=== PATIENT | male | born 1960 | race Asian ===

== ENCOUNTER 2018-06-09 15:39 | Inpatient (IN) | payer OTHER ==
--- NOTE | 2018-06-09 15:46 | PDOC ---
Rapid Medical Evaluation Time Seen by Provider: 06/09/18 15:40 Medical Evaluation: Allergies Allergy/AdvReac Type Severity Reaction Status Date / Time No Known Allergies Allergy Verified 06/09/18 06:24 06/09/18 15:46 Pt states that he syncopized today at home. Pt states he had a CT scan earlier in the day. After he had the scan he went home and felt light headed. states he then passed out and landed on his butt. He did not hit his head. states he then went to stand up after coming to and felt light headed. He has no complaints at this time Exam: NAD, no respiratory distress, AAOX3 Orders: Labs, urine, EKG, X-ray Pt to proceed to the ED for further evaluation Discharge Disposition - Diagnosis Syncopal episodes - Referrals Referrals: Franco Flores MD [Primary Care Provider] - - Patient Instructions - Post Discharge Activity
--- NOTE | 2018-06-09 16:22 | PDOC ---
Attending Attestation - Resident Resident Name: Pavan Nichols - ED Attending Attestation I have performed the following: I have examined & evaluated the patient, The case was reviewed & discussed with the resident, I agree w/resident's findings & plan, Exceptions are as noted - Critical Care Time Total Critical Care Time: 35 Critical Care Statement: The care of this patient involved high complexity decision making to prevent further life threatening deterioration of the patient 's condition and/or to evaluate & treat vital organ system(s) failure or risk of failure. - Medical Decision Making 06/09/18 16:21 I, Dr. Ann Del Toro, DO, attest that this document has been prepared under my direction and personally reviewed by me in its entirety. I further attest, that it accurately reflects all work, treatment, procedures and medical decision -making performed by me. 06/09/18 16:44 a/p: 57yo male with rectal bleeding that started this AM around midnight. 4 episodes this AM. had labs and ct in the ED that showed diverticular disease. went home, 2 syncopal episodes upon returning home will repeat labs, ekg, cxr will place in obs for GI bleed and syncope will consult Dr. Reinoso PMD is Dr. Flores nontoxic in appearance no head injury neuro intact 06/09/18 17:03 hgb dropped from 11.8 to 8.9 will admit for gi bleed and syncope family requesting consult to DR. Reinoso call placed to DR. Reinoso 06/09/18 17:11 resident discussed the case with RICHARD who is covering for Dr. Flores 06/09/18 17:21 resident is discussing the case with DR. Reinoso <Ann Del Toro - Last Filed: 06/09/18 17:21> - HPI HPI: 06/09/18 17:22 Patient is a 57 year old male with a significant past medical history of HTN, who presents to the ED with complaints of syncopizing that occurred earlier this afternoon. Patient reports coming into the ED this morning at 6 am with complaints of GI bleeding. He reports being discharged this afternoon after having blood work done. As per patient's , patient experienced x2 episodes of syncope shortly after returning home. Patient reports eating a small meal followed by an hour of bed red with slight relief. Patient's reports calling Dr. Flores who then advise patient come back into the ED for further evaluation. Denies chest pain, Sob. Denies nausea, vomiting. Denies fevers, chills. Denies contact with sick individuals, out of state travelling. Denies loss of consciousness, head trauma. Denies any other symptoms. Allergies: None Social history: No smoking. No alcohol. No illicit drugs. Surgical history: None PMD: Dr. Flores. GI: Dr. Reinoso - Physicial Exam PE: 06/09/18 17:22 GENERAL: Awake, alert, and fully oriented, in no acute distress HEAD: No signs of trauma EYES: PERRLA, EOMI, sclera anicteric, conjunctiva clear ENT: Auricles normal inspection, hearing grossly normal, nares patent, oropharynx clear without exudates. Moist mucosa NECK: Normal ROM, supple, no lymphadenopathy, JVD, or masses LUNGS: Breath sounds equal, clear to auscultation bilaterally. No wheezes, and no crackles HEART: Regular rate and rhythm, normal S1 and S2, no murmurs, rubs or gallops ABDOMEN: Soft, nontender, No guarding, no rebound. No masses EXTREMITIES: Normal range of motion, no edema. No clubbing or cyanosis. No cords, erythema, or tenderness NEUROLOGICAL: Cranial nerves II through XII grossly intact. Normal speech, normal gait SKIN: Warm, Dry, normal turgor, no rashes or lesions noted. <Suman Cardenas - Last Filed: 06/09/18 17:22> Heart Score/ECG Review - ECG Intrepretation Comment:: 06/09/18 16:45 sinus at 91, nl axis, nl interval, no acute st/t wave findings <Ann Del Toro - Last Filed: 06/09/18 17:21>
[2018-06-09 16:37] LABS: BASO % 0.1 % (0-2.0); EOS % 0.2 % (0-4.5); HEMATOCRIT 26.2 % (35.4-49); HEMOGLOBIN 8.9 GM/dL (11.7-16.9); LYMPH % 22.6 % (8-40); MCH 30.4 pg (25.7-33.7); MEAN CELL VOLUME 89.5 fl (80-96); MEAN PLT VOLUME 7.5 fl (7.5-11.1); MONO % 5.5 % (3.8-10.2); NEUT % 71.6 % (42.8-82.8); PLATELET COUNT 178 K/MM3 (134-434); RBC 2.93 M/mm3 (4.00-5.60); RDW 12.5 % (11.9-15.9); WHITE BLOOD COUNT 9.6 K/mm3 (4.0-10.0)
[2018-06-09 16:52] LABS: URINE APPEARANCE CLEAR; URINE BILIRUBIN NEGATIVE (<2.0 mg/dL); URINE COLOR STRAW; URINE GLUCOSE (UA) NEGATIVE (NEGATIVE); URINE KETONE NEGATIVE (NEGATIVE); URINE LEUK ESTERASE NEGATIVE (NEGATIVE); URINE NITRITE NEGATIVE (NEGATIVE); URINE PROTEIN NEGATIVE (NEGATIVE); URINE UROBILINOGEN NEGATIVE mg/dL (0.2-1.0)
[2018-06-09 17:01] LABS: INR 1.15 (0.83-1.09)
--- NOTE | 2018-06-09 17:04 | PDOC ---
History of Present Illness - General Chief Complaint: Syncope/Near Syncope Stated Complaint: Syncope/Near Syncope Time Seen by Provider: 06/09/18 15:40 History Source: Patient - History of Present Illness Initial Comments: The patient is a 57M with a history of GI bleed in the past 2/2 diverticula who presents after discharge this morning with 1 additional episode (4 prior to AM presentation) and now a syncopal episode. The patient states that he was feeling well at home, went to stand, and subsequently experienced a syncopal episode. He states he remembers falling but does not recall several seconds shortly thereafter. The witnessed the event, and reports that he did not hit his head and returned to his baseline consciousness within a few seconds. 06/09/18 17:15 Past History - Past Medical History Allergies/Adverse Reactions: Allergies Allergy/AdvReac Type Severity Reaction Status Date / Time No Known Allergies Allergy Verified 06/09/18 15:41 Home Medications: Ambulatory Orders NK [No Known Home Medication] 06/09/18 Anemia: No Cancer: No Cardiac Disorders: No CVA: No COPD: No DVT: No Diabetes: No Disorders: No Hypercholesterolemia: No Liver Disease: No Seizures: No Thyroid Disease: No - Surgical History Abdominal Surgery: No Appendectomy: No Cholecystectomy: No Gastric Stapling: No - Immunization History Immunization Up to Date: No - Suicide/Smoking/Psychosocial Hx Smoking History: Never smoked Have you smoked in the past 12 months: No Information on smoking cessation initiated: No Hx Alcohol Use: No Drug/Substance Use Hx: No Substance Use Type: None Review of Systems - Review of Systems Able to Perform ROS?: Yes Comments:: GENERAL/CONSTITUTIONAL: No fever or chills. No weakness HEAD, EYES, EARS, NOSE AND THROAT: No change in vision. No ear pain or discharge. No sore throat CARDIOVASCULAR: No chest pain or shortness of breath RESPIRATORY: No cough, wheezing, or hemoptysis GASTROINTESTINAL: No nausea, vomiting, diarrhea or constipation GENITOURINARY: No dysuria, frequency, or change in urination MUSCULOSKELETAL: No joint or muscle swelling or pain. No neck or back pain SKIN: No rash NEUROLOGIC: No headache; no current dizziness/lightheadedness; no change in strength/sensation ENDOCRINE: No increased thirst. No abnormal weight change HEMATOLOGIC/LYMPHATIC: No anemia, easy bleeding, or history of blood clots ALLERGIC/IMMUNOLOGIC: No hives or skin allergy 06/09/18 17:44 *Physical Exam - Vital Signs Last Vital Signs Temp Pulse Resp BP Pulse Ox 98.1 F 93 H 16 120/70 100 06/09/18 15:41 06/09/18 15:41 06/09/18 15:41 06/09/18 15:41 06/09/18 15:41 - Physical Exam Comments: GENERAL: Awake, alert, and fully oriented, in no acute distress HEAD: No signs of trauma, normocephalic, atraumatic EYES: PERRL, EOMI, sclera anicteric, conjunctiva clear ENT: Hearing grossly normal, nares patent, oropharynx clear without exudates. Moist mucosa NECK: Normal ROM, supple, no lymphadenopathy LUNGS: No distress, speaks full sentences, clear to auscultation bilaterally HEART:Regular rate and rhythm, normal S1 and S2, no murmurs appreciated, peripheral pulses normal and equal bilaterally ABDOMEN: Soft, nontender, normoactive bowel sounds. No guarding, no rebound. No masses RECTAL: normal tone, no external hemorrhoids, gross blood on exam glove, FOBT obtained EXTREMITIES : Normal inspection, Normal range of motion, no edema. No clubbing or cyanosis. No abrasion or gluteal TTP s/p fall. NEUROLOGICAL: Cranial nerves II through XII grossly intact. Normal speech, no focal sensorimotor deficits SKIN: Warm, Dry, normal turgor 06/09/18 17:53 ED Treatment Course - LABORATORY CBC & Chemistry Diagram: 06/09/18 16:03 06/09/18 16:03 - ADDITIONAL ORDERS Additional order review: 06/09/18 16:03 RBC 2.93 L MCV 89.5 MCHC 34.0 RDW 12.5 MPV 7.5 Neutrophils % 71.6 D Lymphocytes % 22.6 D Monocytes % 5.5 Eosinophils % 0.2 D Basophils % 0.1 Medical Decision Making - Medical Decision Making The patient is a 57M with a history of distant GI bleed who presents with BRBPR. He was discharged this morning as asymptomatic and with a Hgb of 11. He returned s/p 1 additional episode of bloody diarrhea and a syncopal episode. ED Course CMP, CBC, FOBT, UA ECG Plan for admission for GI bleed and symptomatic acute blood loss anemia Hgb 8 from 11 this AM ECG without significant change Gross blood on exam glove UA without concern for UTI Dr. Reinoso consulted for GI. Plan for scope tomorrow AM, will give 4 tabs of bisacodyl and transfuse 1u pRBC in prep for tomorrow Paper consent obtained for blood transfusion Trop I negative Dispo: Admit to Hospitalist with GI consult 06/09/18 18:30 *DC/Admit/Observation/Transfer Diagnosis at time of Disposition: Symptomatic anemia Syncopal episodes Qualifiers: Syncope type: unspecified Qualified Code(s): R55 - Syncope and collapse GI bleed Qualifiers: GI bleed type/associated pathology: diverticulosis Qualified Code(s): K57.91 - Diverticulosis of intestine, part unspecified, without perforation or abscess with bleeding - Discharge Dispostion Condition at time of disposition: Guarded Decision to Admit order: Yes - Referrals Referrals: Franco Flores MD [Primary Care Provider] - - Patient Instructions - Post Discharge Activity
--- NOTE | 2018-06-09 17:10 | HP ---
Admitting History and Physical - Admission Chief Complaint: GI bleed History of Present Illness: This is a 57 year old male with pmhx of HTN who presented to the ED at 0530 this morning after 3 episodes of rectal bleeding, described as diarrhea but red , with additional episode while in the ED. The patient and his went to the ER and after being evaluated sent home with instruction to follow with Dr. Reinoso in PCP office Dr. Menjivar tomorrow morning. At that time Hgb was stable, CT scan showed diverticula throughout colon without infection. It was noted in previous ED note, pt took an aleve for shoulder pain before the bleeding started Following discharged, patient went home, after awhile went outside and noticed pt unsteady and he felt backward on his gluteus amaury. He not lose consciousness, fall was witnessed by . As pt helped himself up, he again pre syncopized and fell over his dog, not losing consciousness. Pt appeared pale per , however denies sob, HUGGINS, change in vision, chest pain , AMS. He ate some food and napped, feeling better when he woke up. Of note, noted pt clenching his fists when eating however resolved after a few seconds. Pt called PCP and directed pt to come to the ER. Currently, pt denies further BM, sob, HUGGINS, CP, nausea, vomiting, hemataemsis. Pt denies use of anti coagulants. Pt had colonoscopy in 2005 or 2009 and was negative for pathology History Source: Patient Limitations to Obtaining History: No Limitations - Past Medical History Cardiovascular: Yes: HTN - Smoking History Smoking history: Never smoked Have you smoked in the past 12 months: No - Alcohol/Substance Use Hx Alcohol Use: No - Social History Usual Living Arrangement: Yes: With Spouse ADL: Independent Home Medications - Allergies Allergies/Adverse Reactions: Allergies Allergy/AdvReac Type Severity Reaction Status Date / Time No Known Allergies Allergy Verified 06/09/18 15:41 - Home Medications Home Medications: Ambulatory Orders NK [No Known Home Medication] 06/09/18 Review of Systems - Review of Systems Constitutional: reports: Weakness Eyes: reports: No Symptoms HENT: reports: No Symptoms Neck: reports: No Symptoms Cardiovascular: reports: No Symptoms Respiratory: reports: No Symptoms Gastrointestinal: reports: Rectal Bleeding Integumentary: reports: No Symptoms Neurological: reports: Change in LOC, Syncope Endocrine: reports: No Symptoms Hematology/Lymphatic: reports: No Symptoms Psychiatric: reports: No Symptoms Physical Examination Vital Signs: Vital Signs Temperature 98.1 F 06/09/18 15:41 Pulse Rate 93 H 06/09/18 15:41 Respiratory Rate 16 06/09/18 15:41 Blood Pressure 120/70 06/09/18 15:41 O2 Sat by Pulse Oximetry (%) 100 06/09/18 15:41 Constitutional: Yes: No Distress Eyes: Yes: Conjunctiva Clear HENT: Yes: Atraumatic Neck: Yes: Supple Cardiovascular: Yes: Regular Rate and Rhythm, S1, S2 Respiratory: Yes: Regular, CTA Bilaterally Gastrointestinal: Yes: Normal Bowel Sounds, Soft Musculoskeletal: Yes: WNL Extremities: Yes: WNL Edema: No Integumentary: Yes: WNL Neurological: Yes: Alert, Oriented, Cran Nerves II-XII Intact Labs: CBC, BMP 06/09/18 16:03 Imaging - Results Cat Scan: Report Reviewed Problem List - Problems (1) HTN (hypertension) Code(s): I10 - ESSENTIAL (PRIMARY) HYPERTENSION (2) Syncopal episodes Code(s): R55 - SYNCOPE AND COLLAPSE (3) GI bleed Code(s): K92.2 - GASTROINTESTINAL HEMORRHAGE, UNSPECIFIED Qualifiers: GI bleed type/associated pathology: diverticulosis Qualified Code(s): K57.91 - Diverticulosis of intestine, part unspecified, without perforation or abscess with bleeding Assessment/Plan Assessment: 57 year old male with pmhx htn admitted with acute rectal bleeding and syncope Plan: 1. GI bleed, with blood loss - Keep NPO - Start bowel prep - X4 tabs bisacodyl now - Transfuse 1 unit prbc - d/w GI will scope upper and lower tomorrow 2. Syncope/Pre syncope - Likely due to acute blood loss anemia from above - If persists, consider Head CT 3. Acute blood loss anemia - Due to above - Will transfuse 1 units - Follow CBC 4. HTN - Hold HCTZ 5. DVT ppx - SCDs d/t bleed Visit type - Emergency Visit Emergency Visit: Yes Care time: The patient presented to the Emergency Department on the above date and was hospitalized for further evaluation of their emergent condition. - New Patient This patient is new to me today: Yes Date on this admission: 06/09/18 - Critical Care Critical Care patient: No Hospitalist Screening - Colonoscopy Questionnaire Colonoscopy Questionnaire: Colonoscopy Questionnaire - Patient: 50 - 75 years old and never had a screening colonoscopy: No History of colon or rectal polyps, or CA: No History of IBD, Crohn's disease or UC: No History of abdominal radiation therapy as a child: No - Relative: 1 with colon or rectal CA, or polyps at age 60 or younger: No Colon or rectal CA diagnosed at age 45 or younger: No Multiple relatives with colon or rectal CA: No - Outcome: Screening Result: Negative Screen
[2018-06-09 17:28] LABS: ANION GAP 9 (8-16); BLOOD UREA NITROGEN 16 mg/dL (7-18); CALCIUM 7.6 mg/dL (8.5-10.1); CHLORIDE 103 mmol/L (98-107); CO2 25 mmol/L (21-32); GLUCOSE,RANDOM 154 mg/dL (74-106); POTASSIUM 3.9 mmol/L (3.5-5.1); SGOT/AST 15 U/L (15-37); SGPT/ALT 19 U/L (12-78); SODIUM 137 mmol/L (136-145)
[2018-06-09] MEDS ORDERED: BISACODYL 5 MG TABLET.DR (FP) PO ONE (17:28)
[2018-06-09] MEDS ORDERED: BISACODYL 5 MG TABLET.DR (FP) ONE ×2 (17:30)
[2018-06-09 17:31] LABS: ALK PHOS 34 U/L (45-117); BILIRUBIN,TOTAL 0.4 mg/dL (0.2-1.0); TOT PROT 5.2 g/dl (6.4-8.2)
[2018-06-09] MEDS ORDERED: SODIUM CHLORIDE 1,000 ML IV SCH (18:15)
[2018-06-09] MEDS ORDERED: PEG 3350/NA SULF BICARB CL/KCL 4000 ML SOLN.RECON PO ONE (18:45)
[2018-06-10 06:40] LABS: BASO % 0.2 % (0-2.0); EOS % 0.9 % (0-4.5); HEMATOCRIT 21.9 % (35.4-49); HEMOGLOBIN 7.9 GM/dL (11.7-16.9); LYMPH % 32.6 % (8-40); MCH 31.5 pg (25.7-33.7); MCHC 36.1 g/dl (32.0-35.9); MEAN CELL VOLUME 87.2 fl (80-96); MEAN PLT VOLUME 7.3 fl (7.5-11.1); MONO % 8.2 % (3.8-10.2); NEUT % 58.1 % (42.8-82.8); PLATELET COUNT 120 K/MM3 (134-434); RBC 2.51 M/mm3 (4.00-5.60); RDW 12.7 % (11.9-15.9); WHITE BLOOD COUNT 6.5 K/mm3 (4.0-10.0)
[2018-06-10 06:42] LABS: INR 1.22 (0.83-1.09); PROTHROMBIN TIME (PATIENT) 13.8 SEC (9.7-13.0)
[2018-06-10 07:04] LABS: ALBUMIN 2.7 g/dl (3.4-5.0); ANION GAP 8 (8-16); BLOOD UREA NITROGEN 11 mg/dL (7-18); CALCIUM 7.1 mg/dL (8.5-10.1); CHLORIDE 106 mmol/L (98-107); CO2 29 mmol/L (21-32); GLUCOSE,RANDOM 115 mg/dL (74-106); POTASSIUM 3.3 mmol/L (3.5-5.1); SODIUM 143 mmol/L (136-145)
[2018-06-10 07:08] LABS: ALK PHOS 28 U/L (45-117); BILIRUBIN,TOTAL 0.6 mg/dL (0.2-1.0); CREATININE 0.9 mg/dL (0.7-1.3); SGOT/AST 17 U/L (15-37); SGPT/ALT 17 U/L (12-78); TOT PROT 4.6 g/dl (6.4-8.2)
--- NOTE | 2018-06-10 09:22 | PN ---
Progress Note, Physician History of Present Illness: This is a 57 year old male with pmhx of HTN who presented to the ED after 3 episodes of rectal bleeding, described as diarrhea but red, with additional episode while in the ED. The patient and his went to the ER and after being evaluated sent home with instruction to follow with Dr. Reinoso in PCP office Dr. Menjivar tomorrow morning. At that time Hgb was stable, CT scan showed diverticula throughout colon without infection. Patent became weak and passed out for a few seconds and returned to the ER - Current Medication List Current Medications: Active Medications Sodium Chloride (Normal Saline -) 1,000 mls @ 75 mls/hr IV ASDIR GRISEL Last Admin: 06/09/18 19:30 Dose: 75 mls/hr - Objective Vital Signs: Vital Signs Temperature 98.7 F 06/10/18 06:47 Pulse Rate 94 H 06/10/18 06:47 Respiratory Rate 17 06/10/18 06:47 Blood Pressure 102/56 06/10/18 06:47 O2 Sat by Pulse Oximetry (%) 100 06/10/18 06:47 Cardiovascular: Yes: Regular Rate and Rhythm Respiratory: Yes: Regular, CTA Bilaterally Gastrointestinal: Yes: Normal Bowel Sounds, Soft. No: Tenderness Neurological: Yes: Alert, Oriented. No: Facial Droop Labs: CBC, BMP 06/10/18 06:00 06/10/18 06:00 INR, PTT INR 1.22 (0.83-1.09) H 06/10/18 06:00 Problem List - Problems (1) GI bleed Assessment/Plan: -GI bleed, with blood loss - Keep NPO - Transfuse 2 unit prbc - GI will scope upper and lower Code(s): K92.2 - GASTROINTESTINAL HEMORRHAGE, UNSPECIFIED Qualifiers: GI bleed type/associated pathology: diverticulosis Qualified Code(s): K57.91 - Diverticulosis of intestine, part unspecified, without perforation or abscess with bleeding (2) Symptomatic anemia Assessment/Plan: - Acute blood loss anemia - Due to above - Will transfuse 2 units - Follow CBC Code(s): D64.9 - ANEMIA, UNSPECIFIED (3) HTN (hypertension) Assessment/Plan: - Hold HCTZ Code(s): I10 - ESSENTIAL (PRIMARY) HYPERTENSION (4) Syncopal episodes Assessment/Plan: -Syncope/Pre syncope - Likely due to acute blood loss anemia from above - If persists, consider Head CT Code(s): R55 - SYNCOPE AND COLLAPSE Qualifiers: Syncope type: unspecified Qualified Code(s): R55 - Syncope and collapse
[2018-06-10] MEDS ORDERED: D5-1/2NS+30 MEQ KCL - 30 MEQ/1,000 ML INFUS.BAG IV SCH (09:30)
[2018-06-10] MEDS ORDERED: KCL 10 MEQ IVPB 10 MEQ/100 ML INFUS.BAG IVPB ONE (10:27)
[2018-06-10] MEDS: KCL 10 MEQ IVPB 10 MEQ/100 ML INFUS.BAG IVPB SCH ×2 (10:34→12:42)
[2018-06-10] MEDS ORDERED: PANTOPRAZOLE SODIUM 80 MG in SODIUM CHLORIDE 100 ML IVPB SCH (14:30)
[2018-06-10] MEDS ORDERED: PANTOPRAZOLE SODIUM 160 MG in DEXTROSE 5%-WATER - 290 ML IVPB SCH (15:15)
--- NOTE | 2018-06-10 16:00 | PROC ---
Endoscopy Procedure Endoscopy procedure completed. Please see scanned procedure report. multiple, small duodenal bulb ulcers, mild antral gastritis and reflux esophagitis. Biopsies taken mild shearer-diverticulosis w/o bleeding. Protonix 40 mg po qam Regular diet Follow biopsy next Wednesday
--- NOTE | 2018-06-10 16:23 | CON.GI ---
Consult Consult Specialty:: GI Reason for Consultation:: hematochezia, anemia - History of Present Illness History of Present Illness: Chart reviewed. Events noted. A 57M with history of divericulosis and diverticular bleed in 2003 presents to ED 1 day ago with c/o hematochezia x 1 day and symptomatic, acute blood loss anemia. No prodromal events. No weight loss, dysphagia, reflux sumptoms, abdominal pain, nausea, vomiting, jaundice. No hematemesis, melena. Takes Alive for shoulder pain frequently, Zantak PRN, drinks socially. CMP Sodium 143 mmol/L (136-145) 06/10/18 06:00 Potassium 3.3 mmol/L (3.5-5.1) L 06/10/18 06:00 Chloride 106 mmol/L (98-107) 06/10/18 06:00 Carbon Dioxide 29 mmol/L (21-32) 06/10/18 06:00 Anion Gap 8 (8-16) 06/10/18 06:00 BUN 11 mg/dL (7-18) 06/10/18 06:00 Creatinine 0.9 mg/dL (0.7-1.3) 06/10/18 06:00 Creat Clearance w eGFR > 60 (>60) 06/10/18 06:00 Random Glucose 115 mg/dL (74-106) H D 06/10/18 06:00 Calcium 7.1 mg/dL (8.5-10.1) L 06/10/18 06:00 Total Bilirubin 0.6 mg/dL (0.2-1.0) 06/10/18 06:00 AST 17 U/L (15-37) 06/10/18 06:00 ALT 17 U/L (12-78) 06/10/18 06:00 Alkaline Phosphatase 28 U/L (45-117) L 06/10/18 06:00 Creatine Kinase 217 IU/L (39-308) 06/09/18 16:03 Creatine Kinase Index 0.4 % (0.0-5.0) 06/09/18 16:03 CK-MB (CK-2) < 1.00 ng/mL (0.5-3.6) 06/09/18 16:03 Troponin I 0.02 ng/ml (0.00-0.05) 06/09/18 16:03 Total Protein 4.6 g/dl (6.4-8.2) L 06/10/18 06:00 Albumin 2.7 g/dl (3.4-5.0) L 06/10/18 06:00 CBCD WBC 6.5 K/mm3 (4.0-10.0) 06/10/18 06:00 RBC 2.51 M/mm3 (4.00-5.60) L 06/10/18 06:00 Hgb 7.9 GM/dL (11.7-16.9) L 06/10/18 06:00 Hct 21.9 % (35.4-49) L D 06/10/18 06:00 MCV 87.2 fl (80-96) 06/10/18 06:00 MCHC 36.1 g/dl (32.0-35.9) H 06/10/18 06:00 RDW 12.7 % (11.9-15.9) 06/10/18 06:00 Plt Count 120 K/MM3 (134-434) L D 06/10/18 06:00 MPV 7.3 fl (7.5-11.1) L 06/10/18 06:00 CMP Sodium 143 mmol/L (136-145) 06/10/18 06:00 Potassium 3.3 mmol/L (3.5-5.1) L 06/10/18 06:00 Chloride 106 mmol/L (98-107) 06/10/18 06:00 Carbon Dioxide 29 mmol/L (21-32) 06/10/18 06:00 Anion Gap 8 (8-16) 06/10/18 06:00 BUN 11 mg/dL (7-18) 06/10/18 06:00 Creatinine 0.9 mg/dL (0.7-1.3) 06/10/18 06:00 Creat Clearance w eGFR > 60 (>60) 06/10/18 06:00 Calcium 7.1 mg/dL (8.5-10.1) L 06/10/18 06:00 Total Bilirubin 0.6 mg/dL (0.2-1.0) 06/10/18 06:00 AST 17 U/L (15-37) 06/10/18 06:00 ALT 17 U/L (12-78) 06/10/18 06:00 Alkaline Phosphatase 28 U/L (45-117) L 06/10/18 06:00 Total Protein 4.6 g/dl (6.4-8.2) L 06/10/18 06:00 Albumin 2.7 g/dl (3.4-5.0) L 06/10/18 06:00 INR, PTT INR 1.22 (0.83-1.09) H 06/10/18 06:00 - History Source History Provided By: Patient, Family Member, Medical Record - Past Medical History Cardio/Vascular: Yes: HTN - Alcohol/Substance Use Hx Alcohol Use: No - Smoking History Smoking history: Never smoked Have you smoked in the past 12 months: No - Social History ADL: Independent Home Medications - Allergies Allergies/Adverse Reactions: Allergies Allergy/AdvReac Type Severity Reaction Status Date / Time No Known Allergies Allergy Verified 06/09/18 15:41 - Home Medications Home Medications: Ambulatory Orders NK [No Known Home Medication] 06/09/18 Family Disease History - Family Disease History Family History: Unremarkable (non-contrib) Review of Systems Findings/Remarks: as per HPI, ED, H&P Physical Exam-GI Vital Signs: Vital Signs Temperature 98.3 F 06/10/18 15:49 Pulse Rate 80 06/10/18 16:04 Respiratory Rate 21 06/10/18 16:04 Blood Pressure 100/53 06/10/18 16:04 O2 Sat by Pulse Oximetry (%) 100 06/10/18 16:04 Constitutional: Yes: Well Nourished, No Distress, Calm Eyes: Yes: Conjunctiva Clear HENT: Yes: Atraumatic Neck: Yes: Supple Cardiovascular: Yes: Regular Rate and Rhythm Respiratory: Yes: Regular Gastrointestinal Inspection: No: Ascites, Distention ...Auscultate: Yes: Normoactive Bowel Sounds ...Palpate: Yes: Soft. No: Firm/Rigid, Guarding, Mass, Tenderness, Tenderness, Epigastium, Tenderness, Rebound ...Rectal Exam: Yes: Deferred (egd/colonoscopy) Neurological: Yes: Alert, Oriented Labs: CBC, BMP 06/10/18 06:00 06/10/18 06:00 INR, PTT INR 1.22 (0.83-1.09) H 06/10/18 06:00 Laboratory Last Values WBC 6.5 K/mm3 (4.0-10.0) 06/10/18 06:00 RBC 2.51 M/mm3 (4.00-5.60) L 06/10/18 06:00 Hgb 7.9 GM/dL (11.7-16.9) L 06/10/18 06:00 Hct 21.9 % (35.4-49) L D 06/10/18 06:00 MCV 87.2 fl (80-96) 06/10/18 06:00 MCH 31.5 pg (25.7-33.7) 06/10/18 06:00 MCHC 36.1 g/dl (32.0-35.9) H 06/10/18 06:00 RDW 12.7 % (11.9-15.9) 06/10/18 06:00 Plt Count 120 K/MM3 (134-434) L D 06/10/18 06:00 MPV 7.3 fl (7.5-11.1) L 06/10/18 06:00 Absolute Neuts (auto) 3.8 K/mm3 (1.5-8.0) 06/10/18 06:00 Neutrophils % 58.1 % (42.8-82.8) 06/10/18 06:00 Lymphocytes % 32.6 % (8-40) D 06/10/18 06:00 Monocytes % 8.2 % (3.8-10.2) 06/10/18 06:00 Eosinophils % 0.9 % (0-4.5) D 06/10/18 06:00 Basophils % 0.2 % (0-2.0) 06/10/18 06:00 Nucleated RBC % 0 % (0-0) 06/10/18 06:00 PT with INR 13.80 SEC (9.7-13.0) H 06/10/18 06:00 INR 1.22 (0.83-1.09) H 06/10/18 06:00 Sodium 143 mmol/L (136-145) 06/10/18 06:00 Potassium 3.3 mmol/L (3.5-5.1) L 06/10/18 06:00 Chloride 106 mmol/L (98-107) 06/10/18 06:00 Carbon Dioxide 29 mmol/L (21-32) 06/10/18 06:00 Anion Gap 8 (8-16) 06/10/18 06:00 BUN 11 mg/dL (7-18) 06/10/18 06:00 Creatinine 0.9 mg/dL (0.7-1.3) 06/10/18 06:00 Creat Clearance w eGFR > 60 (>60) 06/10/18 06:00 Random Glucose 115 mg/dL (74-106) H D 06/10/18 06:00 Calcium 7.1 mg/dL (8.5-10.1) L 06/10/18 06:00 Total Bilirubin 0.6 mg/dL (0.2-1.0) 06/10/18 06:00 AST 17 U/L (15-37) 06/10/18 06:00 ALT 17 U/L (12-78) 06/10/18 06:00 Alkaline Phosphatase 28 U/L (45-117) L 06/10/18 06:00 Creatine Kinase 217 IU/L (39-308) 06/09/18 16:03 Creatine Kinase Index 0.4 % (0.0-5.0) 06/09/18 16:03 CK-MB (CK-2) < 1.00 ng/mL (0.5-3.6) 06/09/18 16:03 Troponin I 0.02 ng/ml (0.00-0.05) 06/09/18 16:03 Total Protein 4.6 g/dl (6.4-8.2) L 06/10/18 06:00 Albumin 2.7 g/dl (3.4-5.0) L 06/10/18 06:00 Urine Color Straw 06/09/18 16:03 Urine Appearance Clear 06/09/18 16:03 Urine pH 6.0 (5.0-8.0) 06/09/18 16:03 Ur Specific [place] 1.012 (1.001-1.035) 06/09/18 16:03 Urine Protein Negative (NEGATIVE) 06/09/18 16:03 Urine Glucose (UA) Negative (NEGATIVE) 06/09/18 16:03 Urine Ketones Negative (NEGATIVE) 06/09/18 16:03 Urine Blood Negative (NEGATIVE) 08/16/18 16:03 Urine Nitrite Negative (NEGATIVE) 06/09/18 16:03 Urine Bilirubin Negative (<2.0 mg/dL) 06/09/18 16:03 Urine Urobilinogen Negative mg/dL (0.2-1.0) 06/09/18 16:03 Ur Leukocyte Esterase Negative (NEGATIVE) 06/09/18 16:03 Stool Occult Blood Positive (NEGATIVE) 06/09/18 17:15 Blood Type AB POSITIVE 06/10/18 10:05 Antibody Screen Negative 06/10/18 10:05 Crossmatch See Detail 06/10/18 10:05 Problem List - Problems (1) Acute GI bleeding Code(s): K92.2 - GASTROINTESTINAL HEMORRHAGE, UNSPECIFIED (2) Duodenal ulcer Code(s): K26.9 - DUODENAL ULCER, UNSP ACUTE OR CHRONIC, W/O HEMOR OR PERF (3) Gastritis Code(s): K29.70 - GASTRITIS, UNSPECIFIED, WITHOUT BLEEDING (4) Gastritis and duodenitis Code(s): K29.90 - GASTRODUODENITIS, UNSPECIFIED, WITHOUT BLEEDING (5) Esophagitis Code(s): K20.9 - ESOPHAGITIS, UNSPECIFIED (6) Diverticulosis Code(s): K57.90 - DVRTCLOS OF INTEST, PART UNSP, W/O PERF OR ABSCESS W/O BLEED (7) Symptomatic anemia Code(s): D64.9 - ANEMIA, UNSPECIFIED Assessment/Plan A 57M with symptomatic hematochezia, normal BUN no uper GI symptoms. Hx of chronci NSAID use, social ETOH. EGD revealed low risk, small, shallow duodenal ulcers and non-bleeding (at the time of the exam) mild shearer-diverticulosis. Protonix 40 mg po qam Resume regular diet D/C NSAIDs, ETOH Supplement Iron Avoid constipation Follow biopsies in office
[2018-06-10 17:09] VITALS: BMI 23.3
[2018-06-10] MEDS: PANTOPRAZOLE 40 MG TABLET (FP) PO SCH (18:27)
[2018-06-10 22:54] LABS: HEMOGLOBIN 8.3 GM/dL (11.7-16.9); MCH 30.6 pg (25.7-33.7); MCHC 34.6 g/dl (32.0-35.9); MEAN CELL VOLUME 88.4 fl (80-96); MEAN PLT VOLUME 7.2 fl (7.5-11.1); PLATELET COUNT 135 K/MM3 (134-434); RBC 2.71 M/mm3 (4.00-5.60); RDW 13.8 % (11.9-15.9); WHITE BLOOD COUNT 6.6 K/mm3 (4.0-10.0)
[2018-06-11 07:00] LABS: HEMATOCRIT 26.4 % (35.4-49); HEMOGLOBIN 9.4 GM/dL (11.7-16.9); MCH 31.1 pg (25.7-33.7); MCHC 35.7 g/dl (32.0-35.9); MEAN CELL VOLUME 87.1 fl (80-96); MEAN PLT VOLUME 7.1 fl (7.5-11.1); PLATELET COUNT 121 K/MM3 (134-434); RBC 3.03 M/mm3 (4.00-5.60); RDW 13.9 % (11.9-15.9); WHITE BLOOD COUNT 6.7 K/mm3 (4.0-10.0)
[2018-06-11 07:25] LABS: ANION GAP 6 (8-16); BLOOD UREA NITROGEN 13 mg/dL (7-18); CALCIUM 7.5 mg/dL (8.5-10.1); CHLORIDE 110 mmol/L (98-107); CO2 30 mmol/L (21-32); CREATININE 0.9 mg/dL (0.7-1.3); GLUCOSE,RANDOM 111 mg/dL (74-106); MAGNESIUM 2.3 mg/dL (1.8-2.4); PHOSPHOROUS 2.5 mg/dL (2.5-4.9); POTASSIUM 3.7 mmol/L (3.5-5.1); SODIUM 146 mmol/L (136-145)
[2018-06-11 09:01] VITALS: BP 122/81; PULSE 77; TEMP 98.6
[2018-06-11] MEDS: PANTOPRAZOLE 40 MG TABLET (FP) PO SCH (09:02)
[2018-06-11] MEDS ORDERED: IRON SUCROSE INJECTION 200 MG in SODIUM CHLORIDE 90 ML IVPB ONE (09:03)
--- NOTE | 2018-06-11 09:07 | DS ---
Physical Examination Vital Signs: Vital Signs Temperature 98.6 F 06/11/18 09:00 Pulse Rate 77 06/11/18 09:00 Respiratory Rate 20 06/11/18 09:00 Blood Pressure 122/81 06/11/18 09:00 O2 Sat by Pulse Oximetry (%) 98 06/10/18 21:00 Findings/Remarks: ENDOSCOPY REPORT REVIEWED TODAY HE FEELS GOOD NO ABD PAIN AND NO BLEEDING PER RECTUM Constitutional: Yes: No Distress Eyes: Yes: WNL HENT: Yes: WNL Neck: Yes: WNL Cardiovascular: Yes: WNL Respiratory: Yes: WNL Gastrointestinal: Yes: WNL Renal/: Yes: WNL Musculoskeletal: Yes: WNL Extremities: Yes: WNL Edema: No Peripheral Pulses WNL: Yes Integumentary: Yes: WNL Wound/Incision: Yes: Clean/Dry Neurological: Yes: WNL ...Motor Strength: WNL Psychiatric: Yes: WNL Labs: CBC, BMP 06/11/18 06:28 06/11/18 06:28 Discharge Summary Reason For Visit: GASTRIOINTESTINAL HEMORRHAGE/SYNCOPE Current Active Problems Acute GI bleeding (Acute) Diverticulosis (Acute) Duodenal ulcer (Acute) Esophagitis (Acute) GI bleed (Acute) Gastritis (Acute) Gastritis and duodenitis (Acute) HTN (hypertension) (Acute) Symptomatic anemia (Acute) Syncopal episodes (Acute) Procedures: Principal: COLONOSCOPY/CT SCAN ABD Hospital Course: ADMITTED FOR RECTAL BLEED, CT ABD SHOWED DIVERTICULAR DISEASE, COLONOSCOPY SCTTERED DIVERTICULA, TRANSFUSED IRON AND PRBC, WILL F/U BIOPSY OUT PATIENT Condition: Guarded - Instructions Diet, Activity, Other Instructions: TAKE STOOL SOFTENERS NEEDED F/U DR FELIX FOR BIOPSY RESULTS FERIVA IRON SUPP DAILY WITH PROTONIX UNTIL CBC DONE AT DR FLORES OFFICE NEXT WEEK. Referrals: Franco Flores MD [Primary Care Provider] - Disposition: HOME - Home Medications Comprehensive Discharge Medication List: Ambulatory Orders Hctz - 12.5 mg PO DAILY 06/10/18 Iron/Folate No1/C/B12/Zinc/Dss [Feriva 21-7 Tablet] 1 each PO DAILY #30 tablet 06/11/18 Pantoprazole Sodium [Protonix -] 40 mg PO DAILY #30 tablet.ec 06/11/18
--- NOTE | 2018-06-11 19:05 | EKG ---
Test Reason : Blood Pressure : / mmHG Vent. Rate : 091 BPM Atrial Rate : 091 BPM P-R Int : 152 ms QRS Dur : 080 ms QT Int : 354 ms P-R-T Axes : 013 -08 047 degrees QTc Int : 435 ms NORMAL SINUS RHYTHM NONSPECIFIC T WAVE ABNORMALITY ABNORMAL ECG NO PREVIOUS ECGS AVAILABLE Confirmed by MD MOO, DAMION ([id number]) on 06/11/2018 7:04:55 PM Referred By: Confirmed By:DAMION CORTÉS MD
--- NOTE | 2018-06-14 15:08 | PATH ---
Surgical Pathology Report Patient Name: MAINE WHALEY [facility]. Rec. #: [id number] /Age/Gender: 1960 (Age: 57) / M Account: [id number] Location: [facility] MED/SURG Taken: 06/10/2018 Received: 06/13/2018 Reported: 06/14/2018 Physicians: Kiki Victoria M.D. Specimen(s) Received A: BX 2ND PORTION DUODENUM AND BULB B: BX ANTRUM AND BODY C: BX GE JUNCTION Clinical History GI bleeding Postoperative diagnosis: duodenal ulcer, esophagitis, diverticulosis Final Diagnosis A. SECOND PORTION DUODENUM AND BULB, BIOPSY: DUODENAL MUCOSA WITH CHRONIC DUODENITIS. B. ANTRUM AND BODY, BIOPSY: GASTRIC MUCOSA WITH NO DIAGNOSTIC ABNORMALTIES. IMMUNOSTAIN IS NEGATIVE FOR H. PYLORI ORGANISMS. C. GE JUNCTION, BIOPSY: GASTROESOPHAGEAL JUNCTION MUCOSAL WITH CHRONIC INFLAMMATION AND CHANGES CONSISTENT WITH REFLUX ESOPHAGITIS. Electronically Signed Radha Helton M.D. Gross Description A. Received in formalin, labeled "second portion of duodenum and bulb" are 3 mike, irregular portions of soft tissue ranging from 0.2-0.5 cm. in greatest dimension. The specimens are submitted in toto in one cassette. B. Received in formalin, labeled "antrum and body" are 2 mike, irregular portions of soft tissue measuring 0.2 and 0.4 cm. in greatest dimension. The specimens are submitted in toto in one cassette. C. Received in formalin, labeled "GE junction" are 2 mike, irregular portions of soft tissue measuring 0.2 and 0.6 cm. in greatest dimension. The specimens are submitted in toto in one cassette. 06/13/2018 saudi06/13/2018
== END 2018-06-11 13:27 | disposition home or self-care (01) | DRG 378 ==
LOC: JER 15:39 → JERBED 19:54 → J7W 06-10 16:30
PROVIDERS: ADMIT Family Medicine; ATTEND Family Medicine
PROC: 0DD98ZX Extraction of Duodenum, Via Natural or Artificial Opening Endoscopic, Diagnostic (ICD-10-PCS; 2018-06-10)
PROC: 0DJD8ZZ Inspection of Lower Intestinal Tract, Via Natural or Artificial Opening Endoscopic (ICD-10-PCS; principal; 2018-06-10 14:45)
PROC: 30233N1 Transfusion of Nonautologous Red Blood Cells into Peripheral Vein, Percutaneous Approach (ICD-10-PCS; 2018-06-11)
DX: K92.2 Gastrointestinal hemorrhage, unspecified (principal); D62 Acute posthemorrhagic anemia; I10 Essential (primary) hypertension; K57.90 Diverticulosis of intestine, part unspecified, without perforation or abscess without bleeding; K44.9 Diaphragmatic hernia without obstruction or gangrene; K29.70 Gastritis, unspecified, without bleeding; K20.9 Esophagitis, unspecified; K26.9 Duodenal ulcer, unspecified as acute or chronic, without hemorrhage or perforation; K64.8 Other hemorrhoids; R55 Syncope and collapse
CPT/HCPCS: 36415; 36430; 71046-TC-FY; 80048; 80053; 81003; 82272; 82550; 82553; 83735; 84100; 84484; 85025; 85027; 85610; 86850; 86900; 86901; 86922; 88305-TC; 93005; 93010; 99285-25; J1756; J7030; P9038; P9058

== ENCOUNTER 2019-12-27 06:09 | Day surgery (SDC) | payer OTHER ==
[2019-12-26 08:09] VITALS: BMI 22.6
--- NOTE | 2019-12-26 14:31 | PREOP ---
DATE OF ADMISSION: 12/27/2019 ADMISSION DIAGNOSIS: Chronic sinusitis with polyp. HISTORY OF PRESENT ILLNESS: This 59-year-old male has had a several year history of moderately severe nasal obstruction with clear rhinorrhea, occasional blood, sinus pressure and pain and sneezing. This is generally worse in the winter. He has had a prior history of nasal allergies and rhinitis and he has also had some hyposmia. He has had poor response to numerous nasal sprays, including Dymista. He has been found to have a very large nasal polyp on the right side. CT scan of the paranasal sinuses shows deviation of the septum with a large polyp measuring up to 5.5 in greatest dimension. There was also obstruction of the ethmoid sinuses, as well as right frontal and maxillary sinus, as well as some sphenoid sinus disease. He is now admitted for endoscopic sinus surgery and excision of nasal polyp under general anesthesia. PAST MEDICAL HISTORY: Primary medical doctor is Dr. Franco Flores. His medical history includes asthma, vertigo, and high blood pressure. MEDICATIONS: Present medications include hydrochlorothiazide, metformin, and prednisone. ALLERGIES: There are no allergies to medications. SOCIAL HISTORY: He does not smoke. FAMILY HISTORY: Negative for bleeding or anesthesia problems. There was no history of abnormal bleeding. REVIEW OF SYSTEMS: Patient denies hearing loss or ear pain. HE DOES HAVE ALLERGIES. There was no shortness of breath or cough. There was postnasal drip and headache. He denies abdominal pain. PHYSICAL EXAMINATION: General: Patient is a well-developed male in no distress. HEENT: Head is normal. Eyes are clear. Ears are unremarkable. Oral cavity had an elevated tongue. The nose has deviation of the nasal septum. There is a large nasal polyp primarily on the right side with near total obstruction. This extends into the nasopharynx. DATA: Preoperative labs are pending. CT scan of the paranasal sinuses performed on October 02, 2019, shows opacification of the right maxillary sinus, as well as significant disease in the sphenoid sinus and frontal sinus. There is also bilateral ethmoid disease and mucosal thickening in the left maxillary sinus as well. A large polyp is present. IMPRESSION: Chronic pansinusitis with nasal polyp. PLAN: Endoscopic sinus surgery to address ethmoid, maxillary, frontal and sphenoid sinuses more on the right with image guidance. INFORMED CONSENT: Patient understands the indications, alternatives, risks and benefits to the proposed surgery. Potential complications including, but not limited to anesthesia, bleeding, infection, recurrence, numbness, reduced sense of smell , eye injury and brain injury were discussed in detail. He understands and accepts these risks and wished to proceed with surgery. Questions answered fully. RENATE BRADLEY M.D. [id number] MTDD
[2019-12-27] MEDS ORDERED: LIDOCAINE 1%-EPI 1:100,000 30 ML MDV IJ ONE (07:04)
[2019-12-27] MEDS ORDERED: COCAINE HCL 4% TOPICAL SOLUTION 4 ML BOTTLE TP ONE ×2 (07:06→08:20)
[2019-12-27] MEDS ORDERED: MIDAZOLAM HCL 2 MG/2 ML SINGLE DOSE VIAL ONE (07:31)
[2019-12-27] MEDS ORDERED: ROCURONIUM BROMIDE 50 MG/5 ML SYRINGE ONE (07:31)
[2019-12-27] MEDS ORDERED: SUCCINYLCHOLINE CHLORIDE 200 MG/10 ML SYRINGE ONE (07:31)
[2019-12-27] MEDS ORDERED: PROPOFOL 20 ML ONE ×2 (07:31→09:25)
[2019-12-27] MEDS ORDERED: KETOROLAC TROMETHAMINE 30 MG/1 ML VIAL ONE (07:32)
[2019-12-27] MEDS ORDERED: DEXAMETHASONE SOD PHOSPHATE 4 MG/1 ML VIAL ONE (07:32)
[2019-12-27] MEDS ORDERED: LIDOCAINE HCL/PF 2% SDV 5ML VIAL ONE (07:32)
--- NOTE | 2019-12-27 08:01 | HP ---
History & Physical Update - History History: No Change - Physical Physical: No Change - Assessment Assessment: No Change - Plan Plan: No Change
[2019-12-27] MEDS ORDERED: ONDANSETRON 4 MG/2 ML VIAL IVPUSH PRN (08:14)
[2019-12-27] MEDS ORDERED: oxyCODONE HCL 5 MG TABLET PO PRN (08:14)
[2019-12-27] MEDS ORDERED: LACTATED RINGERS SOLUTION 1,000 ML IV SCH (08:15)
[2019-12-27] MEDS ORDERED: LIDOCAINE 1%/EPI 1:100000 (20 ML MULTI DOSE VIAL) INF ONE ×2 (08:20)
[2019-12-27] MEDS ORDERED: BACITRACIN 15 GM TUBE TOPICAL OINTMENT ONE (09:42)
[2019-12-27] MEDS ORDERED: NEOSTIGMINE METHYLSULFATE 0.5 MG/ML - 10 ML MDV ONE (10:02)
[2019-12-27] MEDS ORDERED: GLYCOPYRROLATE 0.2 MG/1 ML VIAL ONE (10:02)
--- NOTE | 2019-12-27 10:19 | OP ---
Operative Note - Note: Operative Date: 12/27/19 Pre-Operative Diagnosis: chronic pansinusitis, nasal polyps Operation: left endoscopic ethmoidectomy, anterior, left endoscopic maxillary antrostomy, right endoscopic ethmoidectomy andterior and posteior, left endosscopic maxillary antrostomy with removal of tissue, left endoscopic frontal sinus exploration, left endoscopic sphenoidotomy, extensive right nasal polypectomy, image guidance Findings: chronic sinusitis extensive polyposis and polypoid sinusitis right Implants: none Post-Operative Diagnosis: Same as Pre-op Surgeon: Ishmael Blackwood Anesthesiologist/LONG GOODS DRIER: Terell Orozco Anesthesia: General Specimens Removed: left ethmoid tissue, right nasal polyyp and ethmoid tissue Estimated Blood Loss (mls): 100 Blood Volume Replaced (mls): 0
[2019-12-27 12:51] VITALS: BP 141/94; PULSE 92; TEMP 97.6
--- NOTE | 2019-12-27 17:42 | OP ---
DATE OF OPERATION: 12/27/2019 PREOPERATIVE DIAGNOSIS: Chronic pansinusitis with nasal polyposis. POSTOPERATIVE DIAGNOSIS: Chronic pansinusitis with nasal polyposis. PROCEDURES: 1. Left endoscopic ethmoidectomy, anterior. 2. Left endoscopic maxillary antrostomy. 3. Right endoscopic ethmoidectomy, anterior, posterior. 4. Left endoscopic maxillary antrostomy with removal of tissue. 5. Left endoscopic frontal sinus exploration. 6. Left endoscopic sphenoidotomy. 7. Extensive right nasal polypectomy image guidance. SURGEON: Ishmael Blackwood MD ANESTHESIOLOGIST: Terell Orozco CRNA ANESTHESIA: General via endotracheal tube. INDICATIONS: This 59-year-old male has had a longstanding, many year history of worsening right nasal obstruction, which has been refractory to medical therapy. He also has sinus pain and pressure as well as history of sinus infections. Examination demonstrates severe polyposis of the right nasal cavity. There are also nasal polyps in the nasopharynx extending from the right nasopharynx to the left. CT scan demonstrates chronic pansinusitis of all the right sinuses as well as some left anterior and left maxillary sinus disease. He is now brought to surgery for treatment. FINDINGS: Extensive right nasal polyposis, polypoid chronic sinusitis on the right and to a lesser extent on the left. DESCRIPTION OF PROCEDURE: Patient was brought to the operating room and placed on the operating table in supine position. General endotracheal anesthesia was induced to a satisfactory level. He was prepped and draped in the usual fashion for surgery. The nose was prepped with cocaine 4% on pledgets. Lidocaine 1% with epinephrine 1:100,000 was infiltrated into some accessible anterior right nasal polyps. The [employer] system was utilized. After uploading the patient's CT scan data, he was registered, and navigation was used intermittently throughout the case for anatomic landmark identification and to guide dissection. The pledgets were removed. Endoscopy showed marked polyposis, and the scope could not be very far advanced because right nasal cavity was completely filled with polypoid tissue. On the left side, the middle turbinate and middle meatus were normal. Inferior turbinate was normal. The nasopharynx showed significant obstruction from polyps emanating from the right nasopharynx. Lidocaine with epinephrine was infiltrated into the middle turbinate in the lateral nasal wall. Additional cocaine was packed within the middle meatus. The left endoscopic surgery was first performed. Uncinate process was drawn forward and removed with the backbiting forceps. Ethmoid bulla was entered, and upbiting forceps were utilized to perform anterior ethmoidectomy. The lamina papyracea and the fovea ethmoidalis were preserved. The natural ostium was then identified and enlarged. Anterior in the maxillary sinus was identified and had minimal disease. Attention was then turned to the right paranasal sinuses. Because of the extensive polyposis, there were no other landmarks visible. Therefore, nasal polypectomy was begun initially with the ethmoid forceps and then with the microdebrider. Diffuse oozing was noted intermittently. Intermittent packing and incremental injections of lidocaine with epinephrine were performed. Eventually, the inferior turbinate and the middle turbinates were identified. The middle turbinate was injected. The uncinate process appeared to be very stretched and splayed laterally from extensive polyposis emanating from the ethmoid and maxillary sinuses. Polypectomy continued, and the inferior nasal cavity was opened. The nasopharyngeal polyps were removed. Polyps were also seen emanating primarily from the middle meatus. The ethmoidectomy was then performed, again, utilizing image guidance and the [employer] microdebrider. The lamina papyracea and the fovea ethmoidalis were preserved. The sphenoid ethmoid recess was identified and cleared and sphenoidotomy created. Additionally, the frontal recess was then identified with a 70-degree scope. Giraffe forceps was utilized, and polypoid tissue was removed. Frontal sinus was cleared and ostium seen. Finally, the maxillary sinus was then identified. Image guidance was utilized to identify the lateral and inferior orbital vu. Polypoid tissue was removed from the maxillary sinus with the giraffe forceps. Again, during the case, [id number] oozing was noted from these areas. Treated intermittently with direct pressure and electrocauterization. Final examination demonstrated clear sinuses. There was some residual polypoid tissue in the right maxillary sinus, which was mostly lateral and difficult to reach with the giraffe forceps. The ethmoid sinuses, sphenoidethmoid recess, ethmoid recess were clear. Shane hemostatic packing was then placed in both the right and left ethmoid beds. Additionally, on the right side, folded Telfa gauze coated with antibiotic ointment with a silk suture anteriorly was then placed. Patient tolerated the procedure well. He was then awakened from general anesthesia and transferred to the PACU in stable condition. Estimated blood loss was 100 mL. He received crystalloid at the end of the procedure. Specimens included left ethmoid tissue, right nasal polyp and ethmoid tissue, which were sent to Pathology for routine studies. There were no complications. ISHMAEL BLACKWOOD M.D. [id number]
--- NOTE | 2020-01-02 18:10 | PATH ---
Surgical Pathology Report Patient Name: MAINE WHALEY [facility]. Rec. #: [id number] /Age/Gender: 1960 (Age: 59) / M Account: [id number] Location: [facility] SURGICAL Taken: 12/27/2019 Received: 12/27/2019 Reported: 01/02/2020 Physicians: sIhmael Blackwood M.D. Specimen(s) Received A: LEFT ETHMOID SINUS B: RIGHT NASAL POLYPS #1 C: RIGHT AND LEFT ETHMOID AND POLYP TISSUE D: RIGHT NASAL POLYPS #2 Clinical History Nasal polyps Final Diagnosis A. ETHMOID SINUS, LEFT, ETHMOIDECTOMY: FRAGMENTS OF RESPIRATORY MUCOSA WITH CHRONIC SINUSITIS AND BONE. B. NASAL POLYPS #1, RIGHT, POLYPECTOMY: SINONASAL PAPILLOMA, INVERTED TYPE, FRAGMENTS. FRAGMENTS OF RESPIRATORY MUCOSA WITH CHRONIC SINUSITIS AND BONE. C. ETHMOID AND POLYP TISSUE, RIGHT AND LEFT, ETHMOIDECTOMY AND POLYPECTOMY: SINONASAL PAPILLOMA, INVERTED TYPE, FRAGMENTS. FRAGMENTS OF RESPIRATORY MUCOSA WITH CHRONIC SINUSITIS. D. NASAL POLYPS #2, RIGHT, POLYPECTOMY: SINONASAL PAPILLOMA, INVERTED TYPE, FRAGMENTS. FRAGMENTS OF RESPIRATORY MUCOSA WITH CHRONIC SINUSITIS. Electronically Signed Ana M Diamond M.D. Gross Description A. Received in formalin labeled "left ethmoid sinus," is a 2.3 x 1.8 x 0.2 cm aggregate of mike fragments of soft tissue, cartilage and possible bone. The specimen is submitted in toto in one site, following decalcification. B. Received in formalin labeled "right nasal polyps #1," is a 5.7 x 4.4 x 0.6 cm aggregate of mike, irregular to polypoid portions of soft tissue. The specimen is entirely submitted in 5 cassettes. C. Received in formalin labeled "right ethmoid and left poly-tissue," is a 5.3 x 4.0 x 0.5 cm aggregate of mike-brown soft tissue fragment. A chemical sales representative portion is submitted in 2 cassettes. D. Received in formalin labeled "right nasal polyps #2," is a 2.8 x 1.7 x 0.3 cm aggregate of imke-brown soft tissue fragments. The formalin is filtered and the specimen is entirely submitted in one cassette. DL/12/28/201912/28/2019
== END 2019-12-27 13:00 | disposition home or self-care (01) ==
LOC: JASU-SURG 06:09
PROVIDERS: ATTEND Otolaryngology
PROC: 099R8ZZ Drainage of Left Maxillary Sinus, Via Natural or Artificial Opening Endoscopic (ICD-10-PCS; 2019-12-27)
PROC: 09JY8ZZ Inspection of Sinus, Via Natural or Artificial Opening Endoscopic (ICD-10-PCS; 2019-12-27)
PROC: 09CX8ZZ Extirpation of Matter from Left Sphenoid Sinus, Via Natural or Artificial Opening Endoscopic (ICD-10-PCS; 2019-12-27)
PROC: 095 Ear, Nose, Sinus, Destruction (ICD-10-PCS; 2019-12-27)
PROC: 09BV8ZZ Excision of Left Ethmoid Sinus, Via Natural or Artificial Opening Endoscopic (ICD-10-PCS; principal; 2019-12-27 08:00)
DX: J32.4 Chronic pansinusitis (principal); J33.0 Polyp of nasal cavity
CPT/HCPCS: 82962; 88304-TC; 88311-TC; 94760